=== PATIENT | female | born 1945 | race Caucasian/White ===

== ENCOUNTER → 2016-11-30 | Day surgery (SDC) | payer MEDICARE ==
[~2016-11-30] MED LIST: ALEVE220 M1 PO; AMLODIPINE BESY10 MG PO; CLONIDINE HCL0.1 MG PO; HYDROCODON-ACE1 EAC9 PO; LIPITOR20 MG PO; NEXIUM 24HR20 M1 PO; NO MEDICATIONS; PRINIVIL20 M1 PO; VITAMIN C500 M1 PO; WOMEN'S 50+ DA1 EACH PO
--- NOTE | ~2016-11-30 | OR ---
Unit #: [id number]: [id number] Patient: SONALI CRESPO [id number] [address] [place], [place] [address] [id number] MR#: [id number] NAME: SONALI CRESPO ROOM: Date of Procedure: 11/30/2016 Admission Date: 11/30/2016 Surgeon: Rodrigo Sandoval M.D. : 1945 Attending Physician: Rodrigo Sandoval M.D. Primary Care Physician: Odalis Doyle M.D. OPERATIVE REPORT PREOPERATIVE DIAGNOSES Left upper quadrant abdominal pain along with dyspepsia, bloating, and dysphagia as well as early satiety. In addition, the patient needs colorectal cancer screening having not had a colonoscopy in the past. PROCEDURES PERFORMED Upper gastrointestinal endoscopy and biopsy as well as colonoscopy with polypectomy and colonoscopy with submucosal injection. POSTOPERATIVE DIAGNOSES For upper endoscopy, completely normal examination up to third part of duodenum. A biopsy was obtained from the antrum for CLOtest. For colonoscopy; the patient had multiple polyps. The largest of these was present in the cecum and was about 3 cm in size. It was removed after submucosal injection of methylcellulose and methylene blue followed by snare cautery polypectomy. In addition, the patient also had polyps in the hepatic flexure, descending colon, and sigmoid colon. All the polyps were removed using snare cautery polypectomy, retrieved, and sent for histology. Rest of the examination up to cecum and terminal ileum was normal. The quality of the prep was excellent. RECOMMENDATIONS 1. In view of the multiplicity and size of the polyps removed today, the patient needs a repeat colonoscopy in 3 years. 2. We will follow up results of polyp histology and communicate with the patient. 3. She is being started on empiric pantoprazole 40 mg p.o. daily and will be followed up in the office along with results of biopsies and polyp histology. SEDATION USED MAC. DESCRIPTION OF PROCEDURE Following detailed explanation of potential risks and complications of upper endoscopy and a colonoscopy, namely perforation, bleeding, and complications related to sedation, the patient was brought to GI lab and laid in the left lateral decubitus position. Lubricated tip of the Olympus video upper endoscope was passed through bite block into the proximal esophagus under direct vision. The entire esophageal mucosa was examined and appeared normal. Z-line was nicely demarcated, there being Unit #: [id number] #: [id number] Patient: SONALI CRESPO no esophagitis or hiatus hernia. The scope was then advanced into the gastric cavity and the latter was insufflated. Mucosa of the fundus, body, and antrum was examined and appeared unremarkable. Pylorus was intubated with visualization of the normal duodenal bulb and second and third part of the duodenum. Upon withdrawal and retroflexion, incisura, cardia, and greater curve examined and a biopsy obtained from the antrum for CLOtest. The scope was then withdrawn in the distal esophagus. The entire esophageal mucosa was examined all the way up to pharynx. No additional findings noted. The examination table was then turned by 180 degrees and the patient was positioned for a colonoscopy. A digital rectal examination was performed, which was normal. Lubricated tip of the Olympus video colonoscope was inserted through the anus and advanced under direct vision. The scope was advanced and passed up to sigmoid into descending colon. No diverticula were noted in this area. The scope tip was then navigated all the way up to cecum with visualization of the ileocecal valve and the appendiceal orifice. Preparation was excellent with good visualization and photodocumentation was obtained. Last few inches of the terminal ileum also visualized after intubation of the ileocecal valve and appeared normal. Successive segments of the colonic mucosa were examined upon withdrawal. A large sessile 3 cm sessile polyp was noted in the cecum adjacent to ileocecal valve. The latter was removed after submucosal injection of methylcellulose and methylene blue and total polypectomy was performed with complete removal of the polyp. No residual polyp tissue was left behind. A second polyp about 1.5 cm in size was present in the hepatic flexure. It was also removed using snare cautery polypectomy. Again excellent hemostasis was achieved and photodocumentation was obtained. Two polyps were found in the descending colon. These were a 1 cm and 5 mm each. A fourth polyp was about 6 to 7 mm polyp in the sigmoid colon and was also removed using snare polypectomy. No additional polyp was noted. The patient did not have any diverticulosis nor any hemorrhoids. The scope was then withdrawn. The patient returned to the recovery area. She tolerated the procedure without any postprocedure complications. Dictated by.Kelsi Caceres/austen TD: 12/01/2016 05:44 JOB #: [id number] OPERATIVE REPORT Page 1 of 1 X Rodrigo Sandoval MD PROCEDURE OPERATIVE NOTE
== END | disposition home or self-care (01) ==
LOC: COPS 10:51
DX: R10.12 Left upper quadrant pain (principal); R10.13 Epigastric pain; R13.10 Dysphagia, unspecified; Z12.11 Encounter for screening for malignant neoplasm of colon; D12.2 Benign neoplasm of ascending colon; D12.3 Benign neoplasm of transverse colon; D12.5 Benign neoplasm of sigmoid colon; D12.4 Benign neoplasm of descending colon; R68.81 Early satiety; R14.0 Abdominal distension (gaseous); K21.9 Gastro-esophageal reflux disease without esophagitis; I10 Essential (primary) hypertension; Z79.899 Other long term (current) drug therapy; Z79.1 Long term (current) use of non-steroidal anti-inflammatories (NSAID); Z90.49 Acquired absence of other specified parts of digestive tract; Z90.711 Acquired absence of uterus with remaining cervical stump; Z98.890 Other specified postprocedural states; Z88.8 Allergy status to other drugs, medicaments and biological substances; Z88.5 Allergy status to narcotic agent; Z91.013 Allergy to seafood; Z91.041 Radiographic dye allergy status
CPT/HCPCS: 88305; J2405; Q9968